=== PATIENT | male | born 1960 | race Caucasian/White ===

== ENCOUNTER 2016-04-29 23:05 | Emergency (ER) | payer OTHER ==
[2016-04-29 23:27] LABS: URINE BILIRUBIN NEGATIVE (NEGATIVE); URINE BLOOD NEGATIVE (NEGATIVE); URINE KETONE TRACE (NEGATIVE); URINE LEUKOCYTE ESTERASE NEGATIVE (NEGATIVE); URINE NITRATE NEGATIVE (NEGATIVE); URINE PROTEIN NEGATIVE (NEGATIVE); UROBILINOGEN NORMAL mg/dL (<1.0)
[2016-04-29 23:30] LABS: URINE GLUCOSE (UA) 1000 mg/dL (NORMAL)
== END 2016-04-29 23:18 | disposition left against medical advice (07) ==
LOC: ER 23:05
PROVIDERS: Emergency Medicine
DX: Z53.21 Procedure and treatment not carried out due to patient leaving prior to being seen by health care provider (principal)
CPT/HCPCS: 81003; 99211

== ENCOUNTER 2016-05-24 21:39 | Emergency (ER) | payer OTHER | END 2016-05-24 22:10 | disposition home or self-care (01) | LOC: ER 21:39 | DX: T15.81XA Foreign body in other and multiple parts of external eye, right eye, initial encounter (principal); F17.210 Nicotine dependence, cigarettes, uncomplicated; Z79.899 Other long term (current) drug therapy; Z88.2 Allergy status to sulfonamides ==